=== PATIENT | female | born 1945 | race Caucasian/White ===

== ENCOUNTER → 2016-09-14 | Outpatient (CLI) | payer MEDICARE | LOC: LAB 08:41 | DX: I10 Essential (primary) hypertension (principal); Z83.3 Family history of diabetes mellitus ==

== ENCOUNTER → 2017-11-26 | Outpatient (CLI) | payer MEDICARE | LOC: MAMMO 12:43 | DX: Z12.31 Encounter for screening mammogram for malignant neoplasm of breast (principal) ==

== ENCOUNTER → 2018-07-12 | Outpatient (CLI) | payer MEDICARE ==
[~2018-07-12] VITALS: Ht 162.6 cm; Wt 64.5 kg
[~2018-07-12] MED LIST: VITAMIN D34000 UNIT PO; ZYRTEC ALLERGY10 MG PO
[2018-07-12 12:18] LABS: ALBUMIN 4.5 g/dL (3.5-5.0); CALCIUM 9.7 mg/dL (8.4-10.2); TOTAL BILIRUBIN 0.6 mg/dL (0.2-1.3); TOTAL PROTEIN 7.9 g/dL (6.3-8.2)
[2018-07-12 12:30] VITALS: BP 161/93
[2018-07-12 12:45] LABS: POTASSIUM 4.5 mmol/L (3.6-5.0)
[2018-07-12 13:07] LABS: EOS % 0.5 % (1.0-5.0); HEMATOCRIT 39.3 % (37.0-47.0); HEMOGLOBIN 12.5 g/dL (12.5-16.0); MEAN CELL VOLUME 85 fl (78-100); MEAN CORPUSCULAR HEMOGLOBIN 27 pg (27-31); MEAN CORPUSCULAR HGB CONC 32 g/dL (33-37); MEAN PLATELET VOLUME 11.2 fl (7.4-10.4); MONO # 0.7 (0.20-0.80); PLATELET COUNT 243 K/mm3 (130-400); RED CELL DISTRIBUTION WIDTH 13.9 % (11.5-14.5); WHITE BLOOD COUNT 7.6 K/mm3 (4.8-10.8)
[2018-07-12 15:18] LABS: URINE COLOR YELLOW
[2018-07-12 15:19] LABS: URINE APPEARANCE CLEAR; URINE BILIRUBIN NEGATIVE (NEGATIVE); URINE BLOOD TRACE (NEGATIVE); URINE GLUCOSE NEGATIVE (NEGATIVE); URINE KETONE NEGATIVE (NEGATIVE); URINE LEUKOCYTE ESTERASE TRACE (NEGATIVE); URINE NITRATE NEGATIVE (NEGATIVE); URINE PROTEIN(semi-quant) TRACE mg/dL (NEGATIVE); URINE UROBILINOGEN NORMAL (NORMAL)
== END ==
LOC: AMSURD 11:51
PROVIDERS: Physician Assistant
DX: R42 Dizziness and giddiness (principal); I10 Essential (primary) hypertension; E55.9 Vitamin D deficiency, unspecified; R41.3 Other amnesia; R47.89 Other speech disturbances; F41.9 Anxiety disorder, unspecified; R25.1 Tremor, unspecified; R82.998 Other abnormal findings in urine

== ENCOUNTER → 2018-07-24 | Outpatient (CLI) | payer MEDICARE ==
[2018-07-12 12:30] VITALS: BP 161/93
[2018-07-24 16:16] LABS: HEMATOCRIT 37.7 % (37.0-47.0); HEMOGLOBIN 11.9 g/dL (12.5-16.0); MEAN CELL VOLUME 85 fl (78-100); MEAN CORPUSCULAR HEMOGLOBIN 27 pg (27-31); MEAN CORPUSCULAR HGB CONC 32 g/dL (33-37); PLATELET COUNT 214 K/mm3 (130-400); RED BLOOD COUNT 4.42 M/mm3 (4.10-5.30); RED CELL DISTRIBUTION WIDTH 13.7 % (11.5-14.5); WHITE BLOOD COUNT 11.8 K/mm3 (4.8-10.8)
[2018-07-24 16:17] LABS: POTASSIUM 3.8 mmol/L (3.6-5.0); TOTAL BILIRUBIN 0.6 mg/dL (0.2-1.3); TOTAL PROTEIN 7.3 g/dL (6.3-8.2)
[2018-07-24 17:55] LABS: LYMPHOCYTE 16 % (20-51); MONOCYTE 12 % (3-10); NEUTROPHILS 71 % (42-75)
== END ==
LOC: RAD 15:31
PROVIDERS: Physician Assistant
DX: R10.9 Unspecified abdominal pain (principal); R19.7 Diarrhea, unspecified; K21.9 Gastro-esophageal reflux disease without esophagitis; R63.0 Anorexia; R63.4 Abnormal weight loss; R41.3 Other amnesia

== ENCOUNTER 2018-08-01 16:29 | Observation (INO) | payer MEDICARE ==
[~2018-08-01] VITALS: Ht 162.6 cm; Wt 66.1 kg
[2018-08-01] MEDS ORDERED: ZESTRIL10 M1 PO (17:01)
[2018-08-01 17:22] LABS: HEMATOCRIT 33.7 % (37.0-47.0); HEMOGLOBIN 10.9 g/dL (12.5-16.0); MEAN CELL VOLUME 83 fl (78-100); MEAN CORPUSCULAR HEMOGLOBIN 27 pg (27-31); MEAN CORPUSCULAR HGB CONC 32 g/dL (33-37); MEAN PLATELET VOLUME 11.3 fl (7.4-10.4); PLATELET COUNT 232 K/mm3 (130-400); RED BLOOD COUNT 4.07 M/mm3 (4.10-5.30); RED CELL DISTRIBUTION WIDTH 13.3 % (11.5-14.5); WHITE BLOOD COUNT 18.6 K/mm3 (4.8-10.8)
[2018-08-01 17:31] LABS: ALBUMIN 3.3 g/dL (3.5-5.0); CALCIUM 8.2 mg/dL (8.4-10.2); POTASSIUM 3.6 mmol/L (3.6-5.0); TOTAL PROTEIN 6.1 g/dL (6.3-8.2)
[2018-08-01 17:55] VITALS: BP 123/51
[2018-08-01 18:08] LABS: BAND 14 % (0-10); LYMPHOCYTE 6 % (20-51); MONOCYTE 8 % (3-10); NEUTROPHILS 72 % (42-75)
[2018-08-01 19:21] LABS: URINE APPEARANCE HAZY; URINE COLOR YELLOW
[2018-08-01 19:22] LABS: URINE BILIRUBIN NEGATIVE (NEGATIVE); URINE BLOOD NEGATIVE (NEGATIVE); URINE GLUCOSE NEGATIVE (NEGATIVE); URINE KETONE NEGATIVE (NEGATIVE); URINE LEUKOCYTE ESTERASE NEGATIVE (NEGATIVE); URINE NITRATE NEGATIVE (NEGATIVE); URINE PROTEIN(semi-quant) TRACE mg/dL (NEGATIVE); URINE UROBILINOGEN NORMAL (NORMAL); URINE WBC 0-1 /hpf (0-3)
[2018-08-01 19:47] VITALS: BP 129/67
[2018-08-01 23:20] VITALS: BP 80/40
[2018-08-01 23:58] VITALS: BP 84/42
[2018-08-02 03:48] VITALS: BP 118/68
[2018-08-02 06:20] VITALS: BP 102/57
[2018-08-02 07:16] LABS: CALCIUM 7.7 mg/dL (8.4-10.2); POTASSIUM 3.6 mmol/L (3.6-5.0)
[2018-08-02 07:31] LABS: HEMATOCRIT 28.8 % (37.0-47.0); HEMOGLOBIN 9.1 g/dL (12.5-16.0); MEAN CELL VOLUME 84 fl (78-100); MEAN CORPUSCULAR HEMOGLOBIN 26 pg (27-31); MEAN CORPUSCULAR HGB CONC 32 g/dL (33-37); MEAN PLATELET VOLUME 10.5 fl (7.4-10.4); PLATELET COUNT 235 K/mm3 (130-400); RED BLOOD COUNT 3.45 M/mm3 (4.10-5.30); RED CELL DISTRIBUTION WIDTH 13.3 % (11.5-14.5)
[2018-08-02 07:32] LABS: BAND 20 % (0-10); LYMPHOCYTE 4 % (20-51); MONOCYTE 13 % (3-10); NEUTROPHILS 60 % (42-75)
[2018-08-02 11:00] VITALS: BP 113/62
== END 2018-08-02 13:19 | disposition other institution (70) ==
LOC: ED 16:29 → MED/SURG 19:08
PROVIDERS: ADMIT Nurse Practitioner Family
DX: A04.72 Enterocolitis due to Clostridium difficile, not specified as recurrent (principal); E86.0 Dehydration; E87.1 Hypo-osmolality and hyponatremia; I95.1 Orthostatic hypotension; I10 Essential (primary) hypertension; R41.89 Other symptoms and signs involving cognitive functions and awareness; K21.9 Gastro-esophageal reflux disease without esophagitis; Z79.899 Other long term (current) drug therapy; E55.9 Vitamin D deficiency, unspecified
CPT/HCPCS: G0378; J3490; J7030; Q9967

== ENCOUNTER 2018-08-02 11:41 | Inpatient (IN) | payer MEDICARE ==
[~2018-08-02] VITALS: Ht 162.6 cm; Wt 69.3 kg
[~2018-08-02 11:41] MED LIST changes: +ZESTRIL10 M1 PO
[2018-08-02 15:00] VITALS: BP 114/61
[2018-08-02 16:15] VITALS: BP 114/61
[2018-08-02 19:00] VITALS: BP 113/63
[2018-08-02 23:29] VITALS: BP 118/63
[2018-08-03 03:09] VITALS: BP 127/75
[2018-08-03 06:30] VITALS: BP 137/86
[2018-08-03 07:30] LABS: HEMATOCRIT 30.3 % (37.0-47.0); HEMOGLOBIN 9.5 g/dL (12.5-16.0); MEAN CELL VOLUME 84 fl (78-100); MEAN CORPUSCULAR HEMOGLOBIN 27 pg (27-31); MEAN CORPUSCULAR HGB CONC 31 g/dL (33-37); MEAN PLATELET VOLUME 9.8 fl (7.4-10.4); PLATELET COUNT 253 K/mm3 (130-400); RED BLOOD COUNT 3.59 M/mm3 (4.10-5.30); RED CELL DISTRIBUTION WIDTH 13.5 % (11.5-14.5); WHITE BLOOD COUNT 10.3 K/mm3 (4.8-10.8)
[2018-08-03 07:42] LABS: CALCIUM 7.6 mg/dL (8.4-10.2); POTASSIUM 3.5 mmol/L (3.6-5.0)
[2018-08-03 07:45] LABS: BAND 2 % (0-10); LYMPHOCYTE 7 % (20-51); MONOCYTE 5 % (3-10); NEUTROPHILS 86 % (42-75)
[2018-08-03 11:26] VITALS: BP 140/77
[2018-08-03 14:53] VITALS: BP 129/73
[2018-08-03 18:14] VITALS: BP 135/76
[2018-08-03 23:46] VITALS: BP 116/65
[2018-08-04 03:00] VITALS: BP 134/74
[2018-08-04 06:35] VITALS: BP 139/79
[2018-08-04 08:42] LABS: CALCIUM 7.6 mg/dL (8.4-10.2); POTASSIUM 3.6 mmol/L (3.6-5.0)
[2018-08-04 08:53] LABS: HEMATOCRIT 30.8 % (37.0-47.0); HEMOGLOBIN 9.4 g/dL (12.5-16.0); MEAN CELL VOLUME 84 fl (78-100); MEAN CORPUSCULAR HEMOGLOBIN 26 pg (27-31); MEAN CORPUSCULAR HGB CONC 31 g/dL (33-37); MEAN PLATELET VOLUME 10.5 fl (7.4-10.4); PLATELET COUNT 281 K/mm3 (130-400); RED BLOOD COUNT 3.65 M/mm3 (4.10-5.30); RED CELL DISTRIBUTION WIDTH 13.4 % (11.5-14.5); WHITE BLOOD COUNT 7.7 K/mm3 (4.8-10.8)
[2018-08-04 10:17] LABS: BAND 5 % (0-10); LYMPHOCYTE 6 % (20-51); MONOCYTE 5 % (3-10); NEUTROPHILS 83 % (42-75)
[2018-08-04 10:56] VITALS: BP 146/78
[2018-08-04 15:07] VITALS: BP 143/81
[2018-08-04 18:45] VITALS: BP 130/84
[2018-08-04 23:00] VITALS: BP 139/82
[2018-08-05 03:09] VITALS: BP 145/81
[2018-08-05 06:33] VITALS: BP 158/85
[2018-08-05 06:56] LABS: HEMATOCRIT 31.5 % (37.0-47.0); HEMOGLOBIN 9.8 g/dL (12.5-16.0); MEAN CELL VOLUME 84 fl (78-100); MEAN CORPUSCULAR HEMOGLOBIN 26 pg (27-31); MEAN CORPUSCULAR HGB CONC 31 g/dL (33-37); MEAN PLATELET VOLUME 9.9 fl (7.4-10.4); PLATELET COUNT 283 K/mm3 (130-400); RED BLOOD COUNT 3.75 M/mm3 (4.10-5.30); RED CELL DISTRIBUTION WIDTH 13.3 % (11.5-14.5); WHITE BLOOD COUNT 6.3 K/mm3 (4.8-10.8)
[2018-08-05 07:20] LABS: CALCIUM 7.6 mg/dL (8.4-10.2); POTASSIUM 3.4 mmol/L (3.6-5.0)
[2018-08-05 07:31] LABS: BAND 14 % (0-10); LYMPHOCYTE 5 % (20-51); MONOCYTE 10 % (3-10); NEUTROPHILS 69 % (42-75)
[2018-08-05 11:32] VITALS: BP 144/80
== END 2018-08-05 13:47 | disposition swing bed (61) | DRG 372 ==
LOC: MED/SURG 11:41
PROVIDERS: ADMIT Physician Assistant
DX: A04.72 Enterocolitis due to Clostridium difficile, not specified as recurrent (principal); E87.1 Hypo-osmolality and hyponatremia; E86.0 Dehydration; K21.9 Gastro-esophageal reflux disease without esophagitis; I10 Essential (primary) hypertension; Z85.828 Personal history of other malignant neoplasm of skin; F41.9 Anxiety disorder, unspecified
CPT/HCPCS: J3420; J3480; J3490; J7030

== ENCOUNTER 2018-08-05 11:44 | Inpatient (IN) | payer MEDICARE ==
[~2018-08-05] VITALS: Ht 162.6 cm; Wt 60.8 kg
[2018-08-05 14:20] VITALS: BP 141/89
[2018-08-05 14:54] VITALS: BP 114/61
[2018-08-05 18:52] VITALS: BP 129/75
[2018-08-06 06:28] VITALS: BP 142/83
[2018-08-06 18:52] VITALS: BP 129/78
[2018-08-07 06:09] VITALS: BP 137/82
[2018-08-07 18:23] VITALS: BP 108/68
[2018-08-08 06:24] VITALS: BP 147/81
[2018-08-08 18:41] VITALS: BP 119/71
[2018-08-09 06:17] VITALS: BP 151/81
[2018-08-09 18:48] VITALS: BP 116/76
[2018-08-10 07:21] VITALS: BP 158/96
[2018-08-10 18:27] VITALS: BP 99/57
[2018-08-11 06:10] VITALS: BP 127/71
[2018-08-11 18:31] VITALS: BP 109/48
[2018-08-12 06:23] VITALS: BP 150/89
[2018-08-12 18:38] VITALS: BP 99/65
[2018-08-13 06:25] VITALS: BP 147/112
[2018-08-13 18:24] VITALS: BP 110/69
[2018-08-14 06:24] VITALS: BP 149/81
[2018-08-14 08:43] LABS: BASO # 0.1 (0.02-0.10); EOS # 0.2 (0.04-0.40); EOS % 3.7 % (1.0-5.0); HEMATOCRIT 37.1 % (37.0-47.0); HEMOGLOBIN 11.4 g/dL (12.5-16.0); LYMPH# 1.6 (1.50-4.00); MEAN CELL VOLUME 85 fl (78-100); MEAN CORPUSCULAR HEMOGLOBIN 26 pg (27-31); MEAN CORPUSCULAR HGB CONC 31 g/dL (33-37); MEAN PLATELET VOLUME 9.1 fl (7.4-10.4); MONO # 0.6 (0.20-0.80); NEU # 3.6 (1.40-6.50); PLATELET COUNT 436 K/mm3 (130-400); RED BLOOD COUNT 4.35 M/mm3 (4.10-5.30); RED CELL DISTRIBUTION WIDTH 14.2 % (11.5-14.5)
[2018-08-14 09:05] LABS: ALBUMIN 3.2 g/dL (3.5-5.0); CALCIUM 8.5 mg/dL (8.4-10.2); POTASSIUM 3.2 mmol/L (3.6-5.0); TOTAL BILIRUBIN 0.4 mg/dL (0.2-1.3); TOTAL PROTEIN 6.3 g/dL (6.3-8.2)
[2018-08-14 18:34] VITALS: BP 104/65
[2018-08-15 06:22] VITALS: BP 152/82
[2018-08-15] MEDS ORDERED: ATIVAN0.5 MG PO (07:24)
[2018-08-15] MEDS ORDERED: PANTOPRAZOLE SO40 MG PO (07:25)
[2018-08-15] MEDS ORDERED: PROBIOTICA100 MILLIO PO (07:26)
== END 2018-08-15 09:40 | disposition home health service (06) | DRG 948 ==
LOC: MED/SURG 11:44
PROVIDERS: ADMIT Physician Assistant
DX: R53.81 Other malaise (principal); A04.72 Enterocolitis due to Clostridium difficile, not specified as recurrent; E87.1 Hypo-osmolality and hyponatremia; I10 Essential (primary) hypertension; K21.9 Gastro-esophageal reflux disease without esophagitis; R19.8 Other specified symptoms and signs involving the digestive system and abdomen; R41.89 Other symptoms and signs involving cognitive functions and awareness; E55.9 Vitamin D deficiency, unspecified

== ENCOUNTER 2018-09-03 16:05 | Emergency (ER) | payer MEDICARE ==
[~2018-09-03] VITALS: Wt 57.4 kg
[~2018-09-03 16:05] MED LIST changes: +ATIVAN0.5 MG PO; +PANTOPRAZOLE SO40 MG PO; +PROBIOTICA100 MILLIO PO
[2018-09-03] MEDS ORDERED: [UNRECOGNIZED DRUG - OTHER] PO (16:23)
[2018-09-03] MEDS ORDERED: QUALITY CHOICE80 MG PO (16:24)
[2018-09-03 16:26] VITALS: BP 138/87
[2018-09-03 17:04] LABS: HEMATOCRIT 37.7 % (37.0-47.0); HEMOGLOBIN 11.9 g/dL (12.5-16.0); MEAN CELL VOLUME 84 fl (78-100); MEAN CORPUSCULAR HEMOGLOBIN 26 pg (27-31); MEAN CORPUSCULAR HGB CONC 32 g/dL (33-37); MEAN PLATELET VOLUME 10.7 fl (7.4-10.4); PLATELET COUNT 244 K/mm3 (130-400); RED CELL DISTRIBUTION WIDTH 14.7 % (11.5-14.5); WHITE BLOOD COUNT 11.3 K/mm3 (4.8-10.8)
[2018-09-03] MEDS ORDERED: CYANOCOBAL1000 MCG/1 IM (17:06)
[2018-09-03 17:11] LABS: ALBUMIN 4.1 g/dL (3.5-5.0); AST-SGOT 23 U/L (14-36); CALCIUM 9.2 mg/dL (8.4-10.2); CARBON DIOXIDE 29 mmol/L (22-30); GLUCOSE 128 mg/dL (65-105); LIPASE 49 U/L (23-300); POTASSIUM 3.9 mmol/L (3.6-5.0); SODIUM 141 mmol/L (137-145); TOTAL BILIRUBIN 0.7 mg/dL (0.2-1.3); TOTAL PROTEIN 7.4 g/dL (6.3-8.2)
[2018-09-03 17:12] LABS: ALT/SGPT < 3 U/L (9-52)
[2018-09-03 17:27] LABS: LYMPHOCYTE 9 % (20-51); MONOCYTE 5 % (3-10); NEUTROPHILS 86 % (42-75)
[2018-09-03 19:52] VITALS: BP 120/79
== END 2018-09-03 19:52 | disposition other institution (70) ==
LOC: ED 16:05 → MED/SURG 19:52 → ED 19:52
PROVIDERS: Physician Assistant
DX: A04.72 Enterocolitis due to Clostridium difficile, not specified as recurrent (principal); K21.9 Gastro-esophageal reflux disease without esophagitis; I10 Essential (primary) hypertension; F41.9 Anxiety disorder, unspecified; G47.00 Insomnia, unspecified
CPT/HCPCS: J2405; J7030; Q9967

== ENCOUNTER 2018-09-03 19:52 | Inpatient (IN) | payer MEDICARE ==
[~2018-09-03] VITALS: Ht 162.6 cm; Wt 58.0 kg
[~2018-09-03 19:52] MED LIST changes: +CYANOCOBAL1000 MCG/1 IM; +QUALITY CHOICE80 MG PO; +[UNRECOGNIZED DRUG - OTHER] PO
[2018-09-03 21:50] VITALS: BP 120/79
[2018-09-03 23:50] VITALS: BP 122/68
[2018-09-04 03:00] VITALS: BP 118/62
[2018-09-04 03:07] VITALS: BP 120/79
[2018-09-04 05:26] LABS: EOS % 0.8 % (1.0-5.0); HEMOGLOBIN 9.3 g/dL (12.5-16.0); MEAN CELL VOLUME 86 fl (78-100); MEAN CORPUSCULAR HEMOGLOBIN 27 pg (27-31); MEAN CORPUSCULAR HGB CONC 31 g/dL (33-37); MEAN PLATELET VOLUME 9.9 fl (7.4-10.4); MONO # 0.4 (0.20-0.80); NEU # 2.7 (1.40-6.50); PLATELET COUNT 187 K/mm3 (130-400); RED CELL DISTRIBUTION WIDTH 14.8 % (11.5-14.5); WHITE BLOOD COUNT 3.8 K/mm3 (4.8-10.8)
[2018-09-04 05:42] LABS: ALBUMIN 2.8 g/dL (3.5-5.0); POTASSIUM 3.4 mmol/L (3.6-5.0); TOTAL BILIRUBIN 0.4 mg/dL (0.2-1.3); TOTAL PROTEIN 5.5 g/dL (6.3-8.2)
[2018-09-04 05:45] LABS: LYMPH# 0.7 (1.50-4.00)
[2018-09-04 06:05] VITALS: BP 121/66
[2018-09-04 11:00] VITALS: BP 123/72
[2018-09-04 12:36] LABS: URINE APPEARANCE CLOUDY; URINE BILIRUBIN NEGATIVE (NEGATIVE); URINE BLOOD NEGATIVE (NEGATIVE); URINE COLOR YELLOW; URINE GLUCOSE NEGATIVE (NEGATIVE); URINE KETONE NEGATIVE (NEGATIVE); URINE LEUKOCYTE ESTERASE TRACE (NEGATIVE); URINE MUCUS PRESENT (NOT PRESENT); URINE NITRATE NEGATIVE (NEGATIVE); URINE PROTEIN(semi-quant) TRACE mg/dL (NEGATIVE); URINE UROBILINOGEN NORMAL (NORMAL); URINE WBC 0-1 /hpf (0-3)
[2018-09-04 15:00] VITALS: BP 129/78
[2018-09-04 18:30] VITALS: BP 131/70
[2018-09-05 03:12] VITALS: BP 143/7
[2018-09-05 06:26] VITALS: BP 146/81
[2018-09-05 11:00] VITALS: BP 127/79
[2018-09-05 14:44] VITALS: BP 149/87
[2018-09-05 18:37] VITALS: BP 148/69
[2018-09-05 23:49] VITALS: BP 164/76
[2018-09-06 02:46] VITALS: BP 159/81
[2018-09-06 06:21] VITALS: BP 155/81
[2018-09-06 06:49] LABS: EOS # 0.1 (0.04-0.40); EOS % 3.3 % (1.0-5.0); HEMATOCRIT 31.1 % (37.0-47.0); HEMOGLOBIN 9.5 g/dL (12.5-16.0); LYMPH# 1.3 (1.50-4.00); MEAN CELL VOLUME 85 fl (78-100); MEAN CORPUSCULAR HEMOGLOBIN 26 pg (27-31); MEAN CORPUSCULAR HGB CONC 31 g/dL (33-37); MEAN PLATELET VOLUME 10.2 fl (7.4-10.4); MONO # 0.4 (0.20-0.80); PLATELET COUNT 187 K/mm3 (130-400); RED BLOOD COUNT 3.67 M/mm3 (4.10-5.30); RED CELL DISTRIBUTION WIDTH 14.7 % (11.5-14.5); WHITE BLOOD COUNT 3.9 K/mm3 (4.8-10.8)
[2018-09-06 07:08] LABS: CALCIUM 8.2 mg/dL (8.4-10.2); POTASSIUM 3.2 mmol/L (3.6-5.0)
[2018-09-06 10:58] VITALS: BP 134/79
== END 2018-09-06 14:02 | disposition swing bed (61) | DRG 373 ==
LOC: MED/SURG 19:52
PROVIDERS: Physician Assistant; ADMIT Nurse Practitioner
DX: A04.71 Enterocolitis due to Clostridium difficile, recurrent (principal); Z66 Do not resuscitate; I10 Essential (primary) hypertension; K21.9 Gastro-esophageal reflux disease without esophagitis; E55.9 Vitamin D deficiency, unspecified; J30.9 Allergic rhinitis, unspecified; Z85.828 Personal history of other malignant neoplasm of skin; F41.9 Anxiety disorder, unspecified; R62.7 Adult failure to thrive; Z68.21 Body mass index [BMI] 21.0-21.9, adult; R41.81 Age-related cognitive decline
CPT/HCPCS: J3490; J7030

== ENCOUNTER 2018-09-06 12:29 | Inpatient (IN) | payer MEDICARE ==
[~2018-09-06] VITALS: Ht 162.6 cm; Wt 59.8 kg
[2018-09-06 13:21] VITALS: BP 128/73
[2018-09-06 18:00] VITALS: BP 161/84
[2018-09-07 03:09] LABS: TRANSFERRIN 152 mg/dL (192-382)
[2018-09-07 06:08] VITALS: BP 170/88
[2018-09-07 18:09] VITALS: BP 133/80
[2018-09-08 06:16] VITALS: BP 160/80
[2018-09-08 18:02] VITALS: BP 117/69
[2018-09-09 06:02] VITALS: BP 152/87
[2018-09-09 07:03] LABS: BASO # 0.1 (0.02-0.10); EOS # 0.1 (0.04-0.40); EOS % 1.6 % (1.0-5.0); HEMATOCRIT 34.6 % (37.0-47.0); HEMOGLOBIN 10.9 g/dL (12.5-16.0); LYMPH# 2.7 (1.50-4.00); MEAN CELL VOLUME 84 fl (78-100); MEAN CORPUSCULAR HEMOGLOBIN 26 pg (27-31); MEAN CORPUSCULAR HGB CONC 32 g/dL (33-37); MEAN PLATELET VOLUME 10.4 fl (7.4-10.4); MONO # 0.5 (0.20-0.80); NEU # 2.3 (1.40-6.50); PLATELET COUNT 238 K/mm3 (130-400); RED BLOOD COUNT 4.14 M/mm3 (4.10-5.30); RED CELL DISTRIBUTION WIDTH 14.5 % (11.5-14.5); WHITE BLOOD COUNT 5.7 K/mm3 (4.8-10.8)
[2018-09-09 07:10] LABS: ALBUMIN 3.5 g/dL (3.5-5.0); CALCIUM 8.9 mg/dL (8.4-10.2); POTASSIUM 3.2 mmol/L (3.6-5.0); TOTAL BILIRUBIN 0.4 mg/dL (0.2-1.3); TOTAL PROTEIN 6.7 g/dL (6.3-8.2)
[2018-09-09 18:18] VITALS: BP 137/82
[2018-09-10 06:14] VITALS: BP 164/91
[2018-09-10 17:32] VITALS: BP 142/82
[2018-09-11 06:09] VITALS: BP 155/79
[2018-09-11] MEDS ORDERED: VANCOMYCIN HCL5 GM PO (17:41)
[2018-09-11] MEDS ORDERED: QUETIAPINE FUMA25 M3 PO (17:42)
[2018-09-11] MEDS ORDERED: SLOW-MAG 106 MG1 ECT PO (17:43)
[2018-09-11] MEDS ORDERED: MEGESTROL AC40 MG/ML PO (17:44)
[2018-09-11] MEDS ORDERED: K-TAB20 MEQ PO (17:44)
[2018-09-11 18:14] VITALS: BP 133/78
[2018-09-12 05:56] VITALS: BP 166/83
[2018-09-12 10:27] VITALS: BP 149/80
== END 2018-09-12 10:45 | disposition home health service (06) | DRG 948 ==
LOC: MED/SURG 12:29
PROVIDERS: ADMIT Physician Assistant
DX: R53.81 Other malaise (principal); A04.72 Enterocolitis due to Clostridium difficile, not specified as recurrent; Z66 Do not resuscitate; R62.7 Adult failure to thrive; Z68.21 Body mass index [BMI] 21.0-21.9, adult; I10 Essential (primary) hypertension; K21.9 Gastro-esophageal reflux disease without esophagitis; E55.9 Vitamin D deficiency, unspecified; F41.9 Anxiety disorder, unspecified; E53.8 Deficiency of other specified B group vitamins
CPT/HCPCS: J3420

== ENCOUNTER → 2018-09-26 | Outpatient (CLI) | payer MEDICARE ==
[2018-09-12 10:27] VITALS: BP 149/80
[~2018-09-26] MED LIST changes: +K-TAB20 MEQ PO; +MEGESTROL AC40 MG/ML PO; +QUETIAPINE FUMA25 M3 PO; +SLOW-MAG 106 MG1 ECT PO; +VANCOMYCIN HCL5 GM PO
[2018-09-27 09:47] LABS: FOLATE (FOLIC ACID) 10.2 ng/mL (7.0-31.4)
[2018-10-01 10:49] LABS: VITAMIN B1 137 nmol/L (70-180)
[2018-10-01 21:58] LABS: VITAMIN E 10.1 mg/L (())
== END ==
LOC: LAB 07:47
PROVIDERS: Physician Assistant
DX: R41.3 Other amnesia (principal); E63.9 Nutritional deficiency, unspecified

== ENCOUNTER → 2018-10-08 | Day surgery (SDC) | payer MEDICARE ==
[2018-09-12 10:27] VITALS: BP 149/80
== END ==
LOC: MSO 09:32
DX: R19.7 Diarrhea, unspecified (principal); R63.4 Abnormal weight loss; K21.9 Gastro-esophageal reflux disease without esophagitis; I10 Essential (primary) hypertension
CPT/HCPCS: 00813; J2704; J7120

== ENCOUNTER → 2019-05-14 | Day surgery (SDC) | payer MEDICARE | END | disposition home or self-care (01) | LOC: MSO 07:01 | DX: H25.12 Age-related nuclear cataract, left eye (principal); Z79.899 Other long term (current) drug therapy; Z86.19 Personal history of other infectious and parasitic diseases | CPT/HCPCS: 00142; J0171; J2250; V2632 ==

== ENCOUNTER → 2019-05-29 | Outpatient (CLI) | payer MEDICARE ==
[2019-05-29 14:25] LABS: EOS # 0.2 (0.04-0.40); EOS % 3.8 % (1.0-5.0); HEMATOCRIT 36.1 % (37.0-47.0); HEMOGLOBIN 11.4 g/dL (12.5-16.0); LYMPH# 2.3 (1.50-4.00); MEAN CELL VOLUME 88 fl (78-100); MEAN CORPUSCULAR HEMOGLOBIN 28 pg (27-31); MEAN CORPUSCULAR HGB CONC 32 g/dL (33-37); MEAN PLATELET VOLUME 9.7 fl (7.4-10.4); MONO # 0.5 (0.20-0.80); NEU # 2.6 (1.40-6.50); PLATELET COUNT 230 K/mm3 (130-400); RED BLOOD COUNT 4.12 M/mm3 (4.10-5.30); RED CELL DISTRIBUTION WIDTH 13.4 % (11.5-14.5); WHITE BLOOD COUNT 5.6 K/mm3 (4.8-10.8)
[2019-05-29 14:50] LABS: POTASSIUM 4.6 mmol/L (3.5-5.1)
[2019-05-29 14:51] LABS: CALCIUM 9.4 mg/dL (8.3-10.5)
[2019-05-29 14:54] LABS: TOTAL BILIRUBIN 0.2 mg/dL (0.2-1.2)
[2019-05-29 14:59] LABS: MAGNESIUM 2.1 mg/dL (1.60-2.60)
== END ==
LOC: LAB 14:13
PROVIDERS: Physician Assistant
DX: I10 Essential (primary) hypertension (principal); M85.80 Other specified disorders of bone density and structure, unspecified site; E53.8 Deficiency of other specified B group vitamins; I95.1 Orthostatic hypotension; E55.9 Vitamin D deficiency, unspecified

== ENCOUNTER → 2019-06-10 | Day surgery (SDC) | payer MEDICARE | LOC: MSO 07:14 | DX: H25.11 Age-related nuclear cataract, right eye (principal); F03.90 Unspecified dementia, unspecified severity, without behavioral disturbance, psychotic disturbance, mood disturbance, and anxiety; B96.89 Other specified bacterial agents as the cause of diseases classified elsewhere | CPT/HCPCS: 00142; J0171; J2250; J3010; V2632 ==

== ENCOUNTER → 2020-05-04 | Outpatient (CLI) | payer MEDICARE | LOC: LAB 15:56 | DX: R30.0 Dysuria (principal) ==

== ENCOUNTER → 2020-05-12 | Outpatient (CLI) | payer MEDICARE ==
[2020-05-12 17:27] LABS: EOS # 0.2 (0.04-0.40); EOS % 3.2 % (1.0-5.0); HEMATOCRIT 37.6 % (37.0-47.0); HEMOGLOBIN 11.7 g/dL (12.5-16.0); LYMPH# 2.9 (1.50-4.00); MEAN CELL VOLUME 87 fl (78-100); MEAN CORPUSCULAR HEMOGLOBIN 27 pg (27-31); MEAN CORPUSCULAR HGB CONC 31 g/dL (33-37); MEAN PLATELET VOLUME 10.1 fl (7.4-10.4); MONO # 0.7 (0.20-0.80); NEU # 2.5 (1.40-6.50); PLATELET COUNT 245 K/mm3 (130-400); RED CELL DISTRIBUTION WIDTH 14.1 % (11.5-14.5); WHITE BLOOD COUNT 6.3 K/mm3 (4.8-10.8)
[2020-05-12 17:28] LABS: URINE APPEARANCE CLEAR; URINE COLOR YELLOW
[2020-05-12 17:29] LABS: URINE BILIRUBIN NEGATIVE (NEGATIVE); URINE BLOOD NEGATIVE (NEGATIVE); URINE GLUCOSE NEGATIVE (NEGATIVE); URINE KETONE NEGATIVE (NEGATIVE); URINE LEUKOCYTE ESTERASE NEGATIVE (NEGATIVE); URINE MUCUS PRESENT (NOT PRESENT); URINE NITRATE NEGATIVE (NEGATIVE); URINE PROTEIN(semi-quant) TRACE mg/dL (NEGATIVE); URINE UROBILINOGEN NORMAL (NORMAL)
[2020-05-12 17:31] LABS: ALBUMIN 4.3 g/dL (3.4-4.8)
[2020-05-12 17:32] LABS: POTASSIUM 4.5 mmol/L (3.5-5.1)
[2020-05-12 17:33] LABS: CALCIUM 9.2 mg/dL (8.3-10.5)
[2020-05-12 17:34] LABS: TOTAL PROTEIN 7.2 g/dL (6.2-8.1)
[2020-05-12 17:36] LABS: TOTAL BILIRUBIN 0.2 mg/dL (0.2-1.2)
== END ==
LOC: LAB 16:47
PROVIDERS: Nurse Practitioner
DX: R53.83 Other fatigue (principal)

== ENCOUNTER 2020-12-21 13:07 | Outpatient (RCR) | payer MEDICARE ==
[~2020-12-21 13:07] MED LIST changes: -CEFDINIR300 MG PO; -CELEXA 20MG20 MG/TA1 PO; -DAILY VALUE1 EACH PO; -DITROPAN XL 5MG5 M1 PO; -DONEPEZIL HCL10 MG PO; -K-TAB10 MEQ PO; -LUTEIN6 MG PO; -SEROQUEL 2525 MG/TAB PO; -TURMERIC 500 M1 EACH PO; -VALIUM 5MG T5 MG/TAB PO; -VITAMIN B122500 MC1 PO
== END 2020-12-21 17:00 | disposition home or self-care (01) ==
LOC: PT 13:07
DX: Z74.09 Other reduced mobility (principal); Z73.89 Other problems related to life management difficulty

== ENCOUNTER → 2020-12-21 | Outpatient (CLI) | payer MEDICARE ==
[~2020-12-21] MED LIST changes: +CEFDINIR300 MG PO; +CELEXA 20MG20 MG/TA1 PO; +DAILY VALUE1 EACH PO; +DITROPAN XL 5MG5 M1 PO; +DONEPEZIL HCL10 MG PO; +K-TAB10 MEQ PO; +LUTEIN6 MG PO; +SEROQUEL 2525 MG/TAB PO; +TURMERIC 500 M1 EACH PO; +VALIUM 5MG T5 MG/TAB PO; +VITAMIN B122500 MC1 PO
[2020-12-21 15:36] LABS: BASO # 0.02 (0.02-0.10); EOS # 0.15 (0.04-0.40); EOS % 2.3 % (1.0-5.0); HEMATOCRIT 36.7 % (37.0-47.0); HEMOGLOBIN 11.5 g/dL (12.5-16.0); LYMPH# 2.14 (1.50-4.00); MEAN CELL VOLUME 87 fl (78-100); MEAN CORPUSCULAR HEMOGLOBIN 27 pg (27-31); MEAN CORPUSCULAR HGB CONC 31 g/dL (33-37); MEAN PLATELET VOLUME 10.5 fl (7.4-10.4); MONO # 0.52 (0.20-0.80); NEU # 3.56 (1.40-6.50); PLATELET COUNT 202 K/mm3 (130-400); RED CELL DISTRIBUTION WIDTH 13.9 % (11.5-14.5); WHITE BLOOD COUNT 6.4 K/mm3 (4.8-10.8)
[2020-12-21 15:40] LABS: ALBUMIN 4.1 g/dL (3.4-4.8); POTASSIUM 4.3 mmol/L (3.5-5.1)
[2020-12-21 15:41] LABS: CALCIUM 9.2 mg/dL (8.3-10.5)
[2020-12-21 15:42] LABS: TOTAL PROTEIN 7.1 g/dL (6.2-8.1)
[2020-12-21 15:44] LABS: TOTAL BILIRUBIN 0.4 mg/dL (0.2-1.2)
[2020-12-21 15:58] LABS: URINE APPEARANCE CLOUDY; URINE BILIRUBIN NEGATIVE (NEGATIVE); URINE BLOOD TRACE (NEGATIVE); URINE COLOR YELLOW; URINE GLUCOSE NEGATIVE (NEGATIVE); URINE KETONE NEGATIVE (NEGATIVE); URINE LEUKOCYTE ESTERASE 2+ (NEGATIVE); URINE MUCUS PRESENT (NOT PRESENT); URINE NITRATE NEGATIVE (NEGATIVE); URINE PROTEIN(semi-quant) TRACE mg/dL (NEGATIVE); URINE UROBILINOGEN NORMAL (NORMAL); URINE WBC 31-50 /hpf (0-3)
== END ==
LOC: LAB 15:00
PROVIDERS: Nurse Practitioner
DX: G30.9 Alzheimer's disease, unspecified (principal); F02.80 Dementia in other diseases classified elsewhere, unspecified severity, without behavioral disturbance, psychotic disturbance, mood disturbance, and anxiety

== ENCOUNTER 2020-12-30 15:43 | Observation (INO) | payer MEDICARE ==
[2020-12-30 16:37] LABS: BASO # 0.02 (0.02-0.10); EOS # 0.12 (0.04-0.40); HEMATOCRIT 35.6 % (37.0-47.0); HEMOGLOBIN 11.5 g/dL (12.5-16.0); LYMPH# 1.86 (1.50-4.00); MEAN CELL VOLUME 85 fl (78-100); MEAN CORPUSCULAR HEMOGLOBIN 28 pg (27-31); MEAN CORPUSCULAR HGB CONC 32 g/dL (33-37); MEAN PLATELET VOLUME 10.2 fl (7.4-10.4); MONO # 0.58 (0.20-0.80); NEU # 3.43 (1.40-6.50); PLATELET COUNT 186 K/mm3 (130-400); RED BLOOD COUNT 4.17 M/mm3 (4.10-5.30); RED CELL DISTRIBUTION WIDTH 13.7 % (11.5-14.5)
[2020-12-30 16:45] LABS: POTASSIUM 3.9 mmol/L (3.5-5.1); SODIUM 140 mmol/L (136-145)
[2020-12-30 16:47] LABS: CALCIUM 9.1 mg/dL (8.3-10.5)
[2020-12-30 16:48] LABS: GLUCOSE 100 mg/dL (65-105)
[2020-12-30 16:49] LABS: CARBON DIOXIDE 25 mmol/L (23-31)
[2020-12-30 16:50] LABS: TOTAL BILIRUBIN 0.6 mg/dL (0.2-1.2)
[2020-12-30 16:53] LABS: AST-SGOT 17 U/L (5-34)
[2020-12-30 16:54] LABS: ALT/SGPT 11 U/L (0-55)
[2020-12-30 17:04] LABS: TROPONIN-I < 0.03 ng/mL (<0.030)
[2020-12-30 17:33] LABS: URINE APPEARANCE HAZY; URINE BILIRUBIN NEGATIVE (NEGATIVE); URINE BLOOD NEGATIVE (NEGATIVE); URINE COLOR YELLOW; URINE GLUCOSE NEGATIVE (NEGATIVE); URINE KETONE 1+ (NEGATIVE); URINE LEUKOCYTE ESTERASE NEGATIVE (NEGATIVE); URINE NITRATE NEGATIVE (NEGATIVE); URINE PROTEIN(semi-quant) 1+ mg/dL (NEGATIVE); URINE UROBILINOGEN NORMAL (NORMAL); URINE WBC 0-1 /hpf (0-3)
[2020-12-30 17:34] LABS: URINE MUCUS PRESENT (NOT PRESENT)
[2020-12-30 20:00] VITALS: BP 163/96
[2020-12-30] MEDS ORDERED: CELEXA 20MG20 MG/TA1 PO (21:34)
[2020-12-30] MEDS ORDERED: CEFDINIR300 MG PO (21:34)
[2020-12-30] MEDS ORDERED: DONEPEZIL HCL10 MG PO (21:37)
[2020-12-30] MEDS ORDERED: VALIUM 5MG T5 MG/TAB PO (21:37)
[2020-12-30] MEDS ORDERED: LUTEIN6 MG PO (21:38)
[2020-12-30] MEDS ORDERED: DAILY VALUE1 EACH PO (21:39)
[2020-12-30] MEDS ORDERED: DITROPAN XL 5MG5 M1 PO (21:41)
[2020-12-30] MEDS ORDERED: K-TAB10 MEQ PO (21:43)
[2020-12-30] MEDS ORDERED: TURMERIC 500 M1 EACH PO (21:44)
[2020-12-30] MEDS ORDERED: SEROQUEL 2525 MG/TAB PO (21:44)
[2020-12-30] MEDS ORDERED: VITAMIN B122500 MC1 PO (21:45)
[2020-12-30 22:00] VITALS: BP 189/99
[2020-12-31 05:38] VITALS: BP 162/99
[2020-12-31 09:29] VITALS: BP 167/94
[2020-12-31 13:53] VITALS: BP 176/92
[2020-12-31 15:40] VITALS: BP 176/92
== END 2020-12-31 16:05 ==
LOC: ED 15:43 → MED/SURG 18:48
PROVIDERS: ADMIT Nurse Practitioner Family
DX: R19.7 Diarrhea, unspecified (principal); R53.81 Other malaise; R53.83 Other fatigue; R53.1 Weakness; E86.0 Dehydration; F03.91 Unspecified dementia, unspecified severity, with behavioral disturbance; I10 Essential (primary) hypertension; Z79.899 Other long term (current) drug therapy; F41.9 Anxiety disorder, unspecified
CPT/HCPCS: G0378; J7030

== ENCOUNTER → 2021-04-06 | Outpatient (CLI) | payer MEDICARE ==
[~2021-04-06] MED LIST changes: +CEFDINIR300 MG PO; +CELEXA 20MG20 MG/TA1 PO; +DAILY VALUE1 EACH PO; +DITROPAN XL 5MG5 M1 PO; +DONEPEZIL HCL10 MG PO; +K-TAB10 MEQ PO; +LUTEIN6 MG PO; +SEROQUEL 2525 MG/TAB PO; +TURMERIC 500 M1 EACH PO; +VALIUM 5MG T5 MG/TAB PO; +VITAMIN B122500 MC1 PO
== END ==
LOC: RAD 10:58
DX: M21.959 Unspecified acquired deformity of unspecified thigh (principal); M47.816 Spondylosis without myelopathy or radiculopathy, lumbar region

== ENCOUNTER → 2021-04-08 | Outpatient (CLI) | payer MEDICARE ==
[2021-04-08 15:34] LABS: BASO # 0.03 (0.02-0.10); EOS # 0.05 (0.04-0.40); EOS % 0.8 % (1.0-5.0); HEMOGLOBIN 10.7 g/dL (12.5-16.0); LYMPH# 2.07 (1.50-4.00); MEAN CELL VOLUME 88 fl (78-100); MEAN CORPUSCULAR HEMOGLOBIN 27 pg (27-31); MEAN CORPUSCULAR HGB CONC 31 g/dL (33-37); MEAN PLATELET VOLUME 11.1 fl (7.4-10.4); MONO # 0.45 (0.20-0.80); PLATELET COUNT 184 K/mm3 (130-400); RED BLOOD COUNT 3.99 M/mm3 (4.10-5.30); RED CELL DISTRIBUTION WIDTH 13.7 % (11.5-14.5); WHITE BLOOD COUNT 6.4 K/mm3 (4.8-10.8)
[2021-04-08 15:39] LABS: ALBUMIN 3.5 g/dL (3.4-4.8)
[2021-04-08 15:40] LABS: POTASSIUM 3.6 mmol/L (3.5-5.1)
[2021-04-08 15:41] LABS: CALCIUM 9.5 mg/dL (8.3-10.5)
[2021-04-08 15:42] LABS: TOTAL PROTEIN 6.2 g/dL (6.2-8.1)
[2021-04-08 15:44] LABS: TOTAL BILIRUBIN 0.4 mg/dL (0.2-1.2)
== END ==
LOC: LAB 15:14
PROVIDERS: Physician Assistant
DX: R61 Generalized hyperhidrosis (principal)

== ENCOUNTER → 2022-05-18 | Outpatient (CLI) | payer MEDICARE | LOC: LAB 15:57 | DX: L89.322 Pressure ulcer of left buttock, stage 2 (principal) ==

== ENCOUNTER → 2022-06-14 | Outpatient (CLI) | payer MEDICARE | LOC: LAB 12:32 | DX: T81.49XA Infection following a procedure, other surgical site, initial encounter (principal); L98.419 Non-pressure chronic ulcer of buttock with unspecified severity ==

== ENCOUNTER → 2022-08-21 | Outpatient (CLI) | payer MEDICARE | LOC: RAD 15:03 | DX: J98.4 Other disorders of lung (principal) ==

== ENCOUNTER → 2023-10-05 | Outpatient (CLI) | payer MEDICARE | LOC: LAB 10:57 | DX: L08.9 Local infection of the skin and subcutaneous tissue, unspecified (principal) ==